=== PATIENT | male | born 1990 | race Caucasian/White ===

== ENCOUNTER 2016-08-20 19:07 | Emergency (ER) | payer OTHER ==
[~2016-08-20] VITALS: Ht 195.6 cm; Wt 97.5 kg
[2016-08-20 19:39] VITALS: BP 134/78; PULSE 84; RESP 18; TEMP 98.7; O2SAT 96
--- NOTE | 2016-08-20 20:59 | PD ---
HPI Chief Complaint: Psychiatric Symptoms Time Seen by Provider: 20:54 Travel History International Travel<30 days: No Contact w/Intl Traveler<30days: No Traveled to known affect area: No History of Present Illness HPI 26-year-old white male presents to emergency department under Reece act by PD. The patient had been having a conversation with an [employer] motor vehicle field representative regarding a sale of an item. He states that he never received payment. The alleged individual alleges she did not receive the item. The patient became very agitated and hyperverbal on the phone. He made statements that were construed of a homicidal nature. Please were notified. The patient has a history of PTSD and is 100% service-connected through the . He is currently a student at [employer]. He states that he never intended to make any homicidal or suicidal statements. He does own a assault rifle that it was secured in his closet. He has been off his medicines now for one month. He states that he had just relocated to the area and had ran out of his medication and has been very focused on his schoolwork. He had transferred from [facility] to [employer]. He states that he is currently taking calculus and physics. He denies any suicidal or homicidal ideation. No toxic ingestions. Denies any acute medical complaints. He does admit to having problems focusing. [facility] Past Medical History Narrative Medical PTSD, attention deficit, chronic back pain Tetanus Vaccination: < 5 Years Past Surgical History Surgical History: No Previous Surgery Social History Alcohol Use: No Tobacco Use: No Substance Use: No Allergies-Medications (Allergen,Severity, Reaction): Coded Allergies: No Known Allergies (Unverified , 08/20/16) Review of Systems Except as stated in HPI: all other systems reviewed are Neg Psychiatric: Positive: Depression, Mood Disorder, No: Anxiety, Suicidal Ideations, Disorder of Thought, Substance Abuse, Homicidal Ideation Physical Exam Narrative GENERAL: Well-nourished, well-developed patient. SKIN: Warm and dry. HEAD: Normocephalic and atraumatic. EYES: No scleral icterus. No injection or drainage. ENT: No nasal drainage noted. Mucous membranes pink. Airway patent. NECK: Supple, trachea midline. Moves head freely without obvious discomfort. CARDIOVASCULAR: Regular rate and rhythm without murmurs, gallops, or rubs. RESPIRATORY: Breath sounds equal bilaterally. No accessory muscle use. GASTROINTESTINAL: Abdomen soft, non-tender, nondistended. EXTREMITIES: No cyanosis or edema. BACK: Nontender without obvious deformity. No CVA tenderness. NEURO: Patient is alert and oriented. no sensorimotor deficits. Nonfocal. Normal speech. PSYCH: No delusions. No auditory or visual hallucinations. Data Data Last Documented VS Vital Signs Date Time Temp Pulse Resp B/P Pulse Ox O2 Delivery O2 Flow Rate FiO2 08/20/16 19:39 98.7 84 18 134/78 96 Room Air Orders Psych Screen (08/20/16 19:35) Complete Blood Count With Diff (08/20/16 19:58) Comprehensive Metabolic Panel (08/20/16 19:58) Drug Screen, Random Urine (08/20/16 19:58) Alcohol (Ethanol) (08/20/16 19:58) Salicylates (Aspirin) (08/20/16 19:58) Tylenol (Acetaminophen) (08/20/16 19:58) MDM Medical Decision Making Medical Screen Exam Complete: Yes Emergency Medical Condition: Yes Medical Record Reviewed: Yes Differential Diagnosis MDM: High Differential diagnoses: Schizophrenia, schizoaffective disorder, bipolar, anxiety, depression, adjustment reaction, mood disorder NOS, ODD, depressive disorder NOS, dementia, dementia with agitation, psychosis NOS, substance induced mood disorder, intermittent explosive disorder, Asperger syndrome, infection,electrolyte abnormality, malingering. Narrative Course Mental health screening discussed with the patient. Psychiatric screen ordered. The patient has been medically cleared. This is adjustment reaction with depressed mood Diagnosis Primary Impression: Reaction, adjustment, with depressed mood, brief Condition: Stable Arden Mederos Aug 20, 2016 20:59
[2016-08-20 22:17] VITALS: BP 142/68; PULSE 71; RESP 17; O2SAT 100
[2016-08-20] MEDS ORDERED: CLON1 PO (23:14)
[2016-08-20] MEDS ORDERED: PRAZ1CAP PO (23:14)
[2016-08-20] MEDS ORDERED: ZYPR20TA PO (23:14)
[2016-08-20] MEDS ORDERED: CELE40TA PO (23:14)
[2016-08-20 23:47] LABS: AUTOMATED NEUTROPHIL # 2.3 TH/MM3 (1.8-7.7); BASOPHIL # 0.1 TH/MM3 (0-0.2); BASOPHIL % 1.3 % (0.0-2.0); EOSINOPHIL % 0.6 % (0.0-4.0); HEMATOCRIT 43.6 % (39.0-51.0); HEMO FLAGS DIFF FINAL; LYMPH % 43.8 % (9.0-44.0); LYMPHOCYTE # 2.4 TH/MM3 (1.0-4.8); MEAN CELL VOLUME 85.7 FL (80.0-100.0); MEAN CORPUSCULAR HEMOGLOBIN 29.1 PG (27.0-34.0); MONO % 11.3 % (0.0-8.0); PLATELET COUNT 206 TH/MM3 (150-450); RED BLOOD COUNT 5.09 MIL/MM3 (4.50-5.90); RED CELL DISTRIBUTION WIDTH 12.5 % (11.6-17.2); WHITE BLOOD COUNT 5.4 TH/MM3 (4.0-11.0)
[2016-08-20 23:48] LABS: AMPHETAMINE, URINE NEG (NEG); BARBITURATES, URINE NEG (NEG); COCAINE, URINE NEG (NEG)
[2016-08-20 23:54] LABS: ANION GAP 7 MEQ/L (5-15); AST (GOT) 13 U/L (15-37); BICARBONATE 28.7 MEQ/L (21.0-32.0); BLOOD UREA NITROGEN 18 MG/DL (7-18); CHLORIDE 103 MEQ/L (98-107); GLOMERULAR FILTRATION RATE 70 ML/MIN (>89); POTASSIUM 4.4 MEQ/L (3.5-5.1); SODIUM (NA) 139 MEQ/L (136-145)
[2016-08-20 23:58] LABS: ALKALINE PHOSPHATASE 82 U/L (45-117); ALT (GPT) 18 U/L (12-78); TOTAL BILIRUBIN ADULT 0.8 MG/DL (0.2-1.0)
[2016-08-21 00:05] LABS: ACETAMINOPHEN LESS THAN 2.0 MCG/ML (10.0-30.0)
[2016-08-21 02:00] VITALS: BP 127/71; PULSE 60; RESP 18; O2SAT 97
[2016-08-21 06:48] VITALS: BP 140/58; PULSE 82; RESP 18; O2SAT 99
[2016-08-21 12:13] VITALS: BP 139/69; PULSE 63; RESP 18; O2SAT 99
--- NOTE | 2016-08-21 13:08 | PD ---
History of Present Illness Chief Complaint: Psychiatric Symptoms Time Seen by Provider: 12:45 Travel History International Travel<30 Days: No Contact w/Intl Traveler<30days: No Known affected area: No Legal Status Legal Status: Reece Act Reece Act Signed By: Benito Roland Reece Act Comment: 08/20/2016 8926 History of Present Illness: History of Present Illness 26-year-old white male with history of PTSD and anxiety who presents to emergency department under Reece act initiated by [facility]. Patient reports that he was involved in a conversation with an [employer] hostess party sales representative regarding a sale of an item.he claims that he shipped the item and it was received by the cream buyer but that the money was not deposited in his account. In trying to resolve this issue with SADIE he became angry and was yelling and alledgedly stated " I will just have to go out there and get the computer on my own". After he got off the phone he called his surrogate mother who helped him make plans to get his computer back via the necessary and legal means and he was satisfied with that. It was at this time that the police arrived to his home and brought him to the hospital. The patient has had no previous contact with [facility] psychiatry department. His toxicology is positive for cannabinoids. Patient has been monitored in [facility] and he has not presented any behavioral concerns and no suicidality. He is seen this morning and he is alert, oriented and calm. Speech is clear and logical, goal directed. He does not maintain eye contact. There is no indication that he may be experiencing any hallucinations, delusions or paranoia. He denies any of these as well. He denies any sucidal or homicidal ideation. No sleep or appetite impairment reported. He acknowledges that he is experiencing increase stress due to recent move here, getting scammed by the [employer] company and getting scammed by the recent [employer] transaction. He is excited over being admitted to [facility] and is wanting to be released in order to attend class. In terms of psychiatric care he reports that he receives care at the [facility]. Denies any in patient treatment. No hx of suicide attempts. PFSH Past Medical History ADD: Yes Anxiety: Yes Depression: Yes Diminished Hearing: No Psychiatric: Yes (PTSD) Tetanus Vaccination: < 5 Years Influenza Vaccination: Yes Past Surgical History Surgical History: No Previous Surgery Psychiatric History Psychiatric History Hx Psychiatric Treatment: PATIENT SEEN AT [facility]. RECENT DX OF PTSD, ADD, AND ANXIETY BEFORE DISCHARGE FROM [employer]. TREATED 1 MONTH AGO BY DRS. CASEY AND LARA IN AT [facility]. History of Inpatient Treatment: No Guns or firearms in home: Yes (Taken away by [facility]) Social History Single, male . recently moved to [place] to attend [facility]. Never Hx Alcohol Use: No Hx Tobacco Use: No Hx Substance Use: Yes (marijuana x1) Substance Use Type: Marijuana Hx of Substance Use Treatment: No Family Psychiatric History none reported Allergies-Medications (Allergen,Severity, Reaction): Coded Allergies: No Known Allergies (Unverified , 08/20/16) Reported Meds & Prescriptions Reported Meds & Active Scripts Active Reported Prazosin (Prazosin HCl) 1 Mg Cap 1 Mg PO BID Klonopin (Clonazepam) 1 Mg Tab 1 Mg PO HS Celexa (Citalopram Hydrobromide) 40 Mg Tab 40 Mg PO HS Zyprexa (Olanzapine) 20 Mg Tab 20 Mg PO HS Review of Systems Constitutional: DENIES: Diaphoretic episodes, Fatigue, Fever, Weight gain, Weight loss, Chills, Dizziness, Change in appetite, Night Sweats Endocrine: DENIES: Heat/cold intolerance, Polydipsia, Polyuria, Polyphagia Eyes: DENIES: Blurred vision, Diplopia, Eye inflammation, Eye pain, Vision loss , Photosensitivity, Double Vision Ears, nose, mouth, throat: DENIES: Tinnitus, Hearing loss, Vertigo, Nasal discharge, Oral lesions, Throat pain, Hoarseness, Ear Pain, Running Nose, Epistaxis, Sinus Pain, Toothache, Odynophagia Respiratory: DENIES: Apneas, Cough, Snoring, Wheezing, Hemoptysis, Sputum production, Shortness of breath Cardiovascular: DENIES: Chest pain, Palpitations, Syncope, Dyspnea on Exertion , PND, Lower Extremity Edema, Orthopnea, Claudication Gastrointestinal: DENIES: Abdominal pain, Black stools, Bloody stools, Constipation, Diarrhea, Nausea, Vomiting, Difficulty Swallowing, Anorexia Genitourinary: DENIES: Sexual dysfunction, Urinary frequency, Urinary incontinence, Urgency, Hematuria, Dysuria, Nocturia, Penile Discharge, Testicular Pain, Testicular Swelling Musculoskeletal: DENIES: Joint pain, Muscle aches, Stiffness, Joint Swelling, Back pain, Neck pain Integumentary: DENIES: Abnormal pigmentation, Nail changes, Pruritus, Rash Hematologic/lymphatic: DENIES: Bruising, Lymphadenopathy Immunologic/allergic: DENIES: Eczema, Urticaria Neurologic: DENIES: Abnormal gait, Headache, Localized weakness, Paresthesias, Seizures, Speech Problems, Tremor, Poor Balance Psychiatric: COMPLAINS OF: Anxiety Exam Alert: Yes Holcomb: Person (ox4) Mood: Calm Affect: Restricted Speech: Clear, Logical Eye Contact: Other (minimal) Hallucinations: Other (negative) Delusions: No Suicidal: Ideation (negative) Homicidal: Ideation (negative) Insight/Judgement Fair. Not impaired MDM Medical Decision Making Medical Record Reviewed: Yes Assessment/Plan 26 year old male under a BA after he made statements to an [employer] hostess party sales representative that were of concern for his safety. the patient denies any suicidal or homicidal ideation,intent or plan. He is future oriented and has adequate protective factors in place. He is future oriented and had not demonstrated any concerns while in [facility] pod. At this time he does not present risk to slef or others and he will be [facility] Orders Psych Screen (08/20/16 19:35) Complete Blood Count With Diff (08/20/16 19:58) Comprehensive Metabolic Panel (08/20/16 19:58) Drug Screen, Random Urine (08/20/16 19:58) Alcohol (Ethanol) (08/20/16 19:58) Salicylates (Aspirin) (08/20/16 19:58) Tylenol (Acetaminophen) (08/20/16 19:58) Diet Regular Basic (08/21/16 Breakfast) Diet Regular Basic (08/21/16 Lunch) Diet Regular Basic (08/21/16 Dinner) Results Vital Signs Date Time Temp Pulse Resp B/P Pulse Ox O2 Delivery O2 Flow Rate FiO2 08/21/16 12:13 63 18 139/69 99 Room Air 08/21/16 06:48 82 18 140/58 99 Room Air 08/21/16 02:00 60 18 127/71 97 Room Air 08/20/16 22:17 71 17 142/68 100 Room Air 08/20/16 19:39 98.7 84 18 134/78 96 Room Air Laboratory Tests Test 08/20/16 08/20/16 23:21 23:25 White Blood Count 5.4 Red Blood Count 5.09 Hemoglobin 14.8 Hematocrit 43.6 Mean Corpuscular Volume 85.7 Mean Corpuscular Hemoglobin 29.1 Mean Corpuscular Hemoglobin 34.0 Concent Red Cell Distribution Width 12.5 Platelet Count 206 Mean Platelet Volume 8.2 Neutrophils (%) (Auto) 43.0 Lymphocytes (%) (Auto) 43.8 Monocytes (%) (Auto) 11.3 Eosinophils (%) (Auto) 0.6 Basophils (%) (Auto) 1.3 Neutrophils # (Auto) 2.3 Lymphocytes # (Auto) 2.4 Monocytes # (Auto) 0.6 Eosinophils # (Auto) 0.0 Basophils # (Auto) 0.1 CBC Comment DIFF FINAL Differential Comment Salicylates Level LESS THAN 1.7 Sodium Level 139 Potassium Level 4.4 Chloride Level 103 Carbon Dioxide Level 28.7 Anion Gap 7 Blood Urea Nitrogen 18 Creatinine 1.25 Estimat Glomerular Filtration 70 Rate Random Glucose 91 Calcium Level 9.1 Total Bilirubin 0.8 Aspartate Amino Transf 13 (AST/SGOT) Alanine Aminotransferase 18 (ALT/SGPT) Alkaline Phosphatase 82 Total Protein 7.6 Albumin 4.1 Acetaminophen Level LESS THAN 2.0 Ethyl Alcohol Level LESS THAN 3 Urine Opiates Screen NEG Urine Barbiturates Screen NEG Urine Amphetamines Screen NEG Urine Benzodiazepines Screen NEG Urine Cocaine Screen NEG Urine Cannabinoids Screen POS Diagnosis Primary Impression: Post traumatic stress disorder due to war, terrorism, or hostility Additional Impression: Reaction, adjustment, with depressed mood, brief Psychiatrically Cleared: Yes Med/ Other Pt Specific Info: No Change to Meds Disposition: 01 DISCHARGE HOME Condition: Stable Problem Qualifiers Aissatou Do Aug 21, 2016 13:08
[2016-08-21 13:13] VITALS: BP 139/69; PULSE 63; RESP 18; O2SAT 99
== END 2016-08-21 16:28 | disposition home or self-care (01) ==
LOC: NEDAMB 19:07 → NEPJ 08-21 16:28
DX: F43.21 Adjustment disorder with depressed mood (principal); F43.10 Post-traumatic stress disorder, unspecified; Z86.59 Personal history of other mental and behavioral disorders; Z87.39 Personal history of other diseases of the musculoskeletal system and connective tissue; Y36.90XS War operations, unspecified, sequela
CPT/HCPCS: 80053; 80307; 80320; 80329; 85025; 99283; G0480; G0481